=== PATIENT | female | born 1995 | race Caucasian/White ===

== ENCOUNTER 2016-12-11 10:50 | Day surgery (SDC) | payer OTHER ==
[2016-12-05 15:53] VITALS: BMI 29.5
[~2016-12-11 10:50] MED LIST: LACTATED RINGERS 1,000 ML IV SCH
[2016-12-11 12:22] VITALS: TEMP 98.5
[2016-12-11] MEDS ORDERED: LIDOCAINE 1% 20 ML VIAL (10MG/ML) FOR IV START INTRADERMA ONE (12:30)
[2016-12-11] MEDS ORDERED: PROPOFOL 10 MG/ML 20 ML VIAL IV ONE (13:01)
--- NOTE | 2016-12-11 13:17 | P.PCN ---
Date of Procedure: 12/11/16 Preoperative Diagnosis: Postoperative Diagnosis: Procedure(s) Performed: BRIEF HISTORY: Patient is a 20-year-old pleasant female, scheduled for an elective colonoscopy as a part of evaluation of postprandial diarrhea and intermittent rectal bleeding on and off for the last 1 year duration. PROCEDURE PERFORMED: Colonoscopy and biopsy. PREOPERATIVE DIAGNOSIS: Postprandial diarrhea and intermittent rectal bleeding. IV sedation per Anesthesia. PROCEDURE: After informed consent was obtained, the patient, was brought into the endoscopy unit. IV sedation was administered by Anesthesia under continuous monitoring. Digital rectal examination was normal. Initially the Olympus CF- 160 flexible video colonoscope was then inserted in the rectum, gradually advanced into the cecum without any difficulty. Careful examination was performed as the scope was gradually being withdrawn. Ileocecal valve and the appendiceal orifice were visualized and appeared normal. Prep was excellent. Terminal ileum appeared normal. Mucosa of the cecum, ascending colon, transverse colon, descending colon, sigmoid colon, and rectum appeared normal. Biopsies were done from ascending and descending colon to rule out microscopic/ collagenous colitis. Retroflexion was performed in the rectum and no lesions were seen. The patient tolerated the procedure well. IMPRESSION: Normal-appearing colon from rectum to cecum with no evidence of colitis or colorectal neoplasia . RECOMMENDATIONS: Findings of this examination were discussed with the patient as well as her family. She was advised to follow with the biopsy results. Her symptoms are suggestive of irritable bowel syndrome. She was advised to use [id number] Imodium as needed for her symptoms.. Implants: Indications for Procedure: Operative Findings: Description of Procedure:
[2016-12-11 13:30] VITALS: RESP 16
[2016-12-11 13:41] VITALS: BP 113/77; PULSE 81
== END 2016-12-11 14:22 | disposition home or self-care (01) ==
LOC: ORWHC2ENDO 10:50
PROVIDERS: ATTEND Internal Medicine Gastroenterology
DX: K62.5 Hemorrhage of anus and rectum (principal); R19.4 Change in bowel habit; A08.8 Other specified intestinal infections; Z79.3 Long term (current) use of hormonal contraceptives; Z79.899 Other long term (current) drug therapy
CPT/HCPCS: 88305; 45380; J2704

== ENCOUNTER → 2016-12-31 | Outpatient (CLI) | payer OTHER ==
--- NOTE | 2017-01-01 10:53 | ECHOF ---
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 This was a technically good study. The left ventricular size is normal. Left ventricular wall thickness is normal. Overall left ventricular systolic function is normal with, an EF between 60 - 65 %. The right ventricle is normal in size and function. Normal LA size by volume 22+/-6 ml/m2. The right atrium is normal in size. The aortic valve is trileaflet, and appears structurally normal. No aortic stenosis or regurgitation. The mitral valve is normal. There is trace mitral regurgitation. Trace tricuspid regurgitation present. Right ventricular systolic pressure is normal at < 35 mmHg. There is no evidence of pulmonary hypertension. The aortic root size is normal. Normal inferior vena cava with normal inspiratory collapse consistent with estimated right atrial pressure of 5 mmHg. The pericardium is normal. There is no pericardial effusion. CONCLUSIONS -------- 1. Sinus rhythm. 2. There is no evidence of pulmonary hypertension. 3. The aortic root size is normal. 4. There is no pericardial effusion. 5. This was a technically good study. 6. The left ventricular size is normal. 7. Overall left ventricular systolic function is normal with, an EF between 60 - 65 %. 8. Normal LA size by volume 22+/-6 ml/m2. 9. The aortic valve is trileaflet, and appears structurally normal. No aortic stenosis or regurgitation. 10. There is trace mitral regurgitation. 11. Trace tricuspid regurgitation present. 12. Right ventricular systolic pressure is normal at < 35 mmHg. RISK SPECIALIST: Baldemar Palumbo RDCS
== END | disposition home or self-care (01) ==
LOC: RADECHMAIN 15:34
PROVIDERS: ATTEND Internal Medicine
DX: I08.1 Rheumatic disorders of both mitral and tricuspid valves (principal)
CPT/HCPCS: 93306

== ENCOUNTER → 2024-08-25 | Outpatient (CLI) | payer BC | END | disposition home or self-care (01) | LOC: EDSTATUS 09:27 → LABWHC1 10:00 | PROVIDERS: ATTEND Obstetrics & Gynecology | DX: O20.0 Threatened abortion (principal); Z3A.00 Weeks of gestation of pregnancy not specified | CPT/HCPCS: 36415; 84702; 86850; 86900; 86901 ==